=== PATIENT | female | born 1980 | race Caucasian/White ===

== ENCOUNTER 2016-06-17 20:05 | Emergency (ER) | payer OTHER ==
[~2016-06-17] VITALS: Ht 165.1 cm; Wt 68.1 kg
[~2016-06-17 20:05] MED LIST: CIPR-255 PO; IUD'IUD
[2016-06-17 20:13] VITALS: TEMP 37.1; Ht 165.1 cm; Wt 68.1 kg
--- NOTE | 2016-06-17 21:18 | DIAGNOSTIC IMAGING REPORT ---
TWO VIEW CHEST CLINICAL HISTORY: Cough. FINDINGS: PA and lateral chest radiographs are obtained. No prior studies are available for comparison at the time of dictation. The cardiomediastinal silhouette is unremarkable. The lungs and pleural spaces are clear. There is no pneumothorax. The bony thorax appears intact. IMPRESSION: No active disease in the chest. Electronically signed by: Rudy Trinh M.D. 06/17/2016 9:17 PM Dictated Date/Time: 06/17/2016 9:16 PM
[2016-06-17] MEDS ORDERED: MULT-506 PO (21:30)
[2016-06-17 21:43] VITALS: BP 124/88; PULSE 88; O2SAT 100
--- NOTE | 2016-06-17 22:29 | EMERGENCY ROOM VISIT NOTE ---
History Report prepared by Tomás: Renny Cruz Under the Supervision of: Dr. Dann Montalvo M.D. First contact with patient: 20:20 Chief Complaint: FEVER Stated Complaint: EAR ACHE, FEVER, HEAD AND BODY ACHES History of Present Illness The patient is a 35 year old female who presents to the Emergency Room with complaints of a persistent illness beginning yesterday. Her symptoms include fevers, chills, right ear pain, sore throat, cough, and body aches. The patient has taken Tylenol for her pain but has seen minimal relief. She states what seems to bother her most are her chills. 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 She states that many people at school are sick with similar symptoms. The patient did not have a flu shot this year. She denies any rashes, or vomiting. Source of History: patient Onset: Yesterday Position: other (global) Quality: other (cold symptoms) Timing: other (persistent) Associated Symptoms: + chills, + fevers, No rash, No vomiting Note: The patient also complains of right jaw pain and body aches. Review of Systems See HPI for pertinent positives & negatives. A total of 10 systems reviewed and were otherwise negative. 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 Eyes: Pupils are equal round reactive to light. Conjunctiva are noninjected. ENT: Mild erythema to the posterior oropharynx. No exudate. TMs have no signs of erythema. Mucous membranes are moist. No facial swelling. Neck supple without meningeal signs. Respiratory: Clear to auscultation bilaterally. Breath sounds are equal bilaterally. Cardiovascular: Regular rate and rhythm. No rubs or gallops. GI: Soft, nondistended and nontender. Bowel sounds are present. Musculoskeletal: No peripheral edema. No lower extremity tenderness. Integumentary: No cyanosis. Neurological: The patient is awake and alert. No focal deficits. Psychiatric: Normal affect. Medical Decision & Procedures ER Provider Diagnostic Interpretation: X-ray results as stated below per interpretation by me and the radiologist: TWO VIEW CHEST FINDINGS: PA and lateral chest radiographs are obtained. No prior studies are available for comparison at the time of dictation. The cardiomediastinal silhouette is unremarkable. The lungs and pleural spaces are clear. There is no pneumothorax. The bony thorax appears intact. IMPRESSION: No active disease in the chest. Electronically signed by: Rudy Trinh M.D. Laboratory Results Test 06/17/16 20:43 Influenza Type A Antigen Neg for Influ A (NEG) Influenza Type B Antigen Neg for Influ B (NEG) Laboratory results as reviewed by me. ED Course 2021: The patient was evaluated in room B12B. A complete history and physical exam was performed. 2127: Upon reevaluation, the patient appeared to have improvement of her symptoms. I discussed tonight's findings with her. She verbalized agreement of the treatment plan. The patient was discharged home. Medical Decision this is a 35-year-old female who presents with cold symptoms. Differential diagnosis includes viral syndrome, influenza, pneumonia, bronchitis, strep pharyngitis. I did perform a limited focused review of portions of the patient' s old chart on the electronic medical record. The patient has had no recent pertinent visits to this hospital. I did evaluate the patient as noted above. The patient has had flulike symptoms since yesterday. I did obtain a rapid strep test which was negative. A throat culture is pending. Rapid flu testing was negative. I did order and personally review the patient's chest x-ray as described above. There is no evidence of pneumonia. I did discuss the test results with the patient. At this time the patient's symptoms seem most consistent with a viral illness. I did recommend close follow up with her doctor. She was given a work note and return instructions as outlined below. Impression Primary Impression: Flu-like symptoms Scribe Attestation The scribe's documentation has been prepared under my direct and personally reviewed by me in its entirety. I confirm that the note above accurately reflects all work, treatment, procedures, and medical decision making performed by me. Departure Information Dispostion Home / Self-Care Referrals Jomar Martin M.D.([place]) (PCP) Forms HOME CARE DOCUMENTATION FORM, IMPORTANT VISIT INFORMATION Patient Instructions My [facility] Additional Instructions You have been examined and treated today on an emergency basis only. This is not a substitute for, or an effort to provide, complete comprehensive medical care. It is impossible to recognize and treat all injuries or illnesses in a single emergency department visit. It is therefore important that you follow up closely with your physician. Call as soon as possible for an appointment. Return for worsening symptoms or if you develop difficulty breathing, rash, difficulty swallowing, vomiting, or any other concerning symptoms.
== END 2016-06-17 21:44 | disposition home or self-care (01) ==
LOC: C.EDB 20:06
DX: R68.89 Other general symptoms and signs (principal); R50.9 Fever, unspecified; J02.9 Acute pharyngitis, unspecified; H92.01 Otalgia, right ear; R05 Cough